=== PATIENT | female | born 1940 | race Caucasian/White ===

== ENCOUNTER 2016-09-29 20:47 | Inpatient (IN) | payer MEDICARE, MEDICAID ==
[~2016-09-29] VITALS: Ht 162.6 cm; Wt 52.9 kg
[~2016-09-29 20:47] MED LIST: ALBUAER3 IN; ALPR0.5T7 PO; ATOR10TA PO; Acetaminophen PO; DON5T PO; LACTCAP35 PO; LEV500T PO; LOSA100T27 PO; METF-370 PO; MONT10TA23 PO; NITR-48 PO; PRIM50TA29 PO; TIOTCAP INH
[2016-09-29] MEDS ORDERED: cefTRIAXone 1GM/50ML D5W 50 ML IV ONE (21:15)
[2016-09-29] MEDS ORDERED: methylPREDNISolone SOD SUCC 125 MG/2 ML VL IV ONE (21:15)
[2016-09-29] MEDS ORDERED: ALBUTEROL SULF 2.5 MG/0.5ML(0.5%) NEB SOLN NEB ONE (21:15)
[2016-09-29] MEDS ORDERED: IPRATROPIUM BROM 0.5 MG/2.5ML INH SOL NEB ONE (21:15)
[2016-09-29 21:33] LABS: Basophils # (auto) 0.1 uL; Basophils % (auto) 0.6 % (0.0-2.0); CONDITION Y; DEFINITIVE SEE PRINTOUT; Eosinophils # (auto) 1.6 uL; Eosinophils % (auto) 11.6 % (0.0-7.0); Hematocrit 47.1 % (36.0-46.0); Hemoglobin 15.6 g/dL (12.2-16.2); Lymphocytes # (auto) 4.5 uL; Lymphocytes % (auto) 32.6 % (10.0-50.0); Mean Corpuscular Hgb Conc. 33.1 g/dL (32.0-36.0); Mean Corpuscular Volume 90.6 fL (80.0-100.0); Mean Platelet Volume 9.3 fL (7.4-10.4); Monocytes # (auto) 1.7 uL; Monocytes % (auto) 12.3 % (0.0-12.0); Neutrophils # (auto) 5.9 uL; Neutrophils % (auto) 42.9 % (37.0-80.0); Platelet Count (auto) 368 10^3/uL (140-450); Red Cell Distribution Width 13.7 % (11.6-16.0); White Blood Cell 13.8 10^3/uL (4.4-10.8)
[2016-09-29 21:48] LABS: INR 0.95 (0.9-1.15); Partial Thromboplastin Time 29.6 sec (22.64-33.71); Prothrombin Time 10.4 sec (9.37-12.3)
[2016-09-29 22:00] LABS: Albumin 3.6 g/dL (3.4-5.0); Alkaline Phosphatase 104 U/L (45-117); Anion Gap 10 (5-15); Aspartate Aminotransferase 22 U/L (15-37); BUN/Creatinine Ratio 19.1; Bilirubin, Total 0.2 mg/dL (0.2-1.0); Blood Urea Nitrogen 17 mg/dL (7-18); Calcium 8.8 mg/dL (8.5-10.1); Carbon Dioxide 29 mmol/L (21-32); Chloride 97 mmol/L (98-107); GFR African American 79 mL/min; GFR Non-African American 65 mL/min; Glucose 94 mg/dL (74-106); Potassium 3.8 mmol/L (3.5-5.1); Sodium 136 mmol/L (136-145); Total Protein 7.7 g/dL (6.4-8.2)
[2016-09-29 22:02] LABS: REFLEX LACTIC ACID YES OR NO YES
[2016-09-29 22:08] LABS: B-Type Natriuretic Peptide 72.92 pg/mL (0-100)
[2016-09-29] MEDS ORDERED: SODIUM CHLORIDE 0.9% 1,000 ML IV ONE (22:45)
[2016-09-29 23:56] LABS: Urine Bilirubin Negative (Negative); Urine Blood Negative /uL (Negative); Urine Color PINK (Yellow); Urine Glucose Normal (Normal); Urine Hyaline Cast MOD /lpf (0 - 2); Urine Ketone TRACE (Negative); Urine Nitrite Negative (Negative); Urine RBC <1 /hpf (0 - 4); Urine Squamous Epithelial Cell FEW /hpf (<5); Urine Urobilinogen Normal (Negative); Urine pH 6.5 (5.0-8.0)
[2016-09-30] MEDS: SODIUM CHLORIDE 0.9% 1,000 ML IV SCH ×2 (01:42→15:12)
[2016-09-30] MEDS ORDERED: LACTULOSE 20Gm/30ML SOLN PO PRN (01:45)
[2016-09-30] MEDS ORDERED: ONDANSETRON HCL 4 MG/2 ML VIAL IV PRN (01:45)
[2016-09-30] MEDS ORDERED: DEXTROSE (50%) 50ML SYRG IV PRN (01:45)
[2016-09-30] MEDS ORDERED: HYDROcodone-ACET 5/325MG TAB PO PRN (01:45)
[2016-09-30] MEDS ORDERED: MORPHINE SULFATE 4 MG/ML SYRG IV PRN ×2 (01:45→02:00)
[2016-09-30] MEDS ORDERED: LORazepam 2MG/ML-1ML VIAL IV PRN (01:45)
[2016-09-30] MEDS ORDERED: ACETAMINOPHEN 500 MG TAB PO PRN (01:45)
[2016-09-30] MEDS ORDERED: NITROGLYCERIN 0.4 MG SL TAB SL PRN (02:00)
[2016-09-30 03:08] VITALS: BP 119/58
[2016-09-30] MEDS: ACCU-CHEK COMFORT CURVE STRIP VI SCH ×4 (06:33→22:00)
[2016-09-30] MEDS: InsuLIN REG 1unit/0.01ml Soln (100units/ml) SC SCH ×4 (06:33→22:00)
[2016-09-30] MEDS: ALBUTEROL SULF 2.5 MG/0.5ML(0.5%) NEB SOLN NEB SCH ×3 (06:42→18:50)
[2016-09-30] MEDS: IPRATROPIUM BROM 0.5 MG/2.5ML INH SOL NEB SCH ×3 (06:42→18:51)
[2016-09-30] MEDS ORDERED: ENOXAPARIN SOD 30 MG/0.3 ML SYRINGE SC SCH (10:00)
[2016-09-30] MEDS: ENOXAPARIN SOD 40 MG/0.4 ML SYRINGE SC SCH (13:10)
[2016-09-30] MEDS: methylPREDNISolone SOD SUCC 40 MG/ML VL IV SCH ×2 (13:10→22:00)
[2016-09-30] MEDS ORDERED: DOXYCYCLINE 100 MG TAB/CAP PO ONE (14:45)
[2016-09-30 18:06] VITALS: BP 110/60
[2016-09-30 18:18] VITALS: BP 110/60
[2016-09-30 21:43] VITALS: BP 125/62
[2016-09-30] MEDS: DOXYCYCLINE 100 MG TAB/CAP PO SCH (22:00)
[2016-10-01] MEDS: IPRATROPIUM BROM 0.5 MG/2.5ML INH SOL NEB SCH ×4 (00:40→19:02)
[2016-10-01] MEDS: ALBUTEROL SULF 2.5 MG/0.5ML(0.5%) NEB SOLN NEB SCH ×4 (00:40→19:02)
[2016-10-01 04:41] VITALS: BP 119/68
[2016-10-01] MEDS: InsuLIN REG 1unit/0.01ml Soln (100units/ml) SC SCH ×4 (05:56→22:00)
[2016-10-01] MEDS: ACCU-CHEK COMFORT CURVE STRIP VI SCH ×4 (05:57→22:00)
[2016-10-01 06:45] LABS: Basophils # (auto) 0.1 uL; Basophils % (auto) 0.8 % (0.0-2.0); CONDITION Y; DEFINITIVE SEE PRINTOUT; Eosinophils # (auto) 1.1 uL; Eosinophils % (auto) 10.2 % (0.0-7.0); Hematocrit 39.4 % (36.0-46.0); Lymphocytes # (auto) 3.3 uL; Lymphocytes % (auto) 30.4 % (10.0-50.0); Mean Corpuscular Hgb Conc. 32.9 g/dL (32.0-36.0); Mean Platelet Volume 9.7 fL (7.4-10.4); Monocytes # (auto) 1.5 uL; Monocytes % (auto) 13.3 % (0.0-12.0); Neutrophils % (auto) 45.3 % (37.0-80.0); Platelet Count (auto) 310 10^3/uL (140-450); Red Cell Distribution Width 13.4 % (11.6-16.0); White Blood Cell 10.9 10^3/uL (4.4-10.8)
[2016-10-01 06:59] LABS: BUN/Creatinine Ratio 16.1; Calcium 8.5 mg/dL (8.5-10.1); Potassium 3.7 mmol/L (3.5-5.1)
[2016-10-01 09:00] VITALS: BP 124/63
[2016-10-01] MEDS: methylPREDNISolone SOD SUCC 40 MG/ML VL IV SCH ×2 (10:05→22:00)
[2016-10-01] MEDS: DOXYCYCLINE 100 MG TAB/CAP PO SCH ×2 (10:05→22:00)
[2016-10-01] MEDS: ENOXAPARIN SOD 40 MG/0.4 ML SYRINGE SC SCH (10:06)
[2016-10-01 13:00] VITALS: BP 136/61
[2016-10-01 15:00] VITALS: BP 158/72
[2016-10-01 17:00] VITALS: BP 139/75
[2016-10-01 21:40] VITALS: BP 126/70
[2016-10-02] VITALS (8 sets, daily range): BP systolic 118–151; BP diastolic 55–78
[2016-10-02] MEDS: ALBUTEROL SULF 2.5 MG/0.5ML(0.5%) NEB SOLN NEB SCH ×4 (00:08→19:20)
[2016-10-02] MEDS: IPRATROPIUM BROM 0.5 MG/2.5ML INH SOL NEB SCH ×4 (00:08→19:19)
[2016-10-02] MEDS: ACCU-CHEK COMFORT CURVE STRIP VI SCH ×4 (05:01→22:00)
[2016-10-02] MEDS: InsuLIN REG 1unit/0.01ml Soln (100units/ml) SC SCH ×4 (05:01→22:31)
[2016-10-02] MEDS: ENOXAPARIN SOD 40 MG/0.4 ML SYRINGE SC SCH (10:00)
[2016-10-02] MEDS: predniSONE 20 MG TAB PO SCH (12:24)
[2016-10-02] MEDS: DOXYCYCLINE 100 MG TAB/CAP PO SCH ×2 (12:24→21:29)
[2016-10-02] MEDS ORDERED: ALPRAZolam 0.5 MG TAB PO PRN (19:45)
[2016-10-02] MEDS: PRIMIDONE 50 MG TAB PO SCH (21:29)
[2016-10-02] MEDS ORDERED: DONEPEZIL HYDROCHLORIDE 5 MG TAB PO SCH (22:00)
[2016-10-03] MEDS: ALBUTEROL SULF 2.5 MG/0.5ML(0.5%) NEB SOLN NEB SCH ×2 (00:24→06:43)
[2016-10-03] MEDS: IPRATROPIUM BROM 0.5 MG/2.5ML INH SOL NEB SCH ×2 (00:24→06:43)
[2016-10-03 05:55] VITALS: BP 121/58
[2016-10-03] MEDS: ACCU-CHEK COMFORT CURVE STRIP VI SCH ×3 (06:00→17:00)
[2016-10-03] MEDS: InsuLIN REG 1unit/0.01ml Soln (100units/ml) SC SCH ×3 (06:00→17:00)
[2016-10-03 08:00] VITALS: BP 121/58
[2016-10-03 08:20] VITALS: BP 158/81
[2016-10-03] MEDS: ENOXAPARIN SOD 40 MG/0.4 ML SYRINGE SC SCH (10:00)
[2016-10-03] MEDS ORDERED: predniSONE 20 MG TAB PO SCH (10:00)
[2016-10-03] MEDS: DOXYCYCLINE 100 MG TAB/CAP PO SCH (10:08)
[2016-10-03] MEDS: PRIMIDONE 50 MG TAB PO SCH (10:08)
[2016-10-03] MEDS: predniSONE 20 MG TAB PO SCH (10:09)
[2016-10-03 13:00] VITALS: BP 110/55
[2016-10-03] MEDS ORDERED: PRE5T PO (13:14)
[2016-10-03] MEDS ORDERED: DOXY-216 PO (13:14)
[2016-10-03 13:57] VITALS: BP 121/58
[2016-10-03 16:21] VITALS: BP 154/73
== END 2016-10-03 17:12 | DRG 91 ==
LOC: EDBD 20:47 → ER 20:49 → TELE 20:50 → TELE-WESTW 09-30 16:32
PROVIDERS: ADMIT Nurse Practitioner Family; ATTEND Internal Medicine
DX: G92 Toxic encephalopathy (principal); J96.20 Acute and chronic respiratory failure, unspecified whether with hypoxia or hypercapnia; J44.1 Chronic obstructive pulmonary disease with (acute) exacerbation; I11.0 Hypertensive heart disease with heart failure; E78.5 Hyperlipidemia, unspecified; F41.9 Anxiety disorder, unspecified; F03.90 Unspecified dementia, unspecified severity, without behavioral disturbance, psychotic disturbance, mood disturbance, and anxiety; E11.9 Type 2 diabetes mellitus without complications; F17.210 Nicotine dependence, cigarettes, uncomplicated; F32.9 Major depressive disorder, single episode, unspecified; I50.9 Heart failure, unspecified; Z79.899 Other long term (current) drug therapy; Z79.84 Long term (current) use of oral hypoglycemic drugs; Z82.49 Family history of ischemic heart disease and other diseases of the circulatory system; Z99.81 Dependence on supplemental oxygen; Z90.710 Acquired absence of both cervix and uterus
CPT/HCPCS: 36415; 70450; 71010; 80048; 80053; 81001; 82962; 83036; 83605; 83735; 83880; 84484; 85025; 85610; 85730; 87040; 87081; 93005; 94640; 96361; 96365; 96372; 97116; 97530; J0696; J1815

== ENCOUNTER 2018-04-28 13:40 | Inpatient (IN) | payer MEDICARE, MEDICAID ==
[~2018-04-28] VITALS: Ht 165.1 cm; Wt 57.9 kg
[~2018-04-28 13:40] MED LIST changes: +ASPI-231 PO; +ASPI325T25 PO; +FUR20T PO; -LEV500T PO; +LOSA-49 PO; -LOSA100T27 PO; +MULT-228 PO; -NITR-48 PO; +POTA1TAB61 PO; -PRIM50TA29 PO
[2018-04-28 14:44] LABS: Basophils # (auto) 0.1 uL; Basophils % (auto) 1.1 % (0.0-2.0); Eosinophils # (auto) 0.9 uL; Eosinophils % (auto) 8.4 % (0.0-7.0); Hematocrit 42.3 % (36.0-46.0); Hemoglobin 14.2 g/dL (12.2-16.2); Lymphocytes # (auto) 2.3 uL; Lymphocytes % (auto) 22.1 % (10.0-50.0); Mean Corpuscular Hemoglobin 31.5 pg (28.0-32.0); Mean Corpuscular Hgb Conc. 33.6 g/dL (32.0-36.0); Mean Corpuscular Volume 93.6 fL (80.0-100.0); Monocytes # (auto) 1.2 uL; Neutrophils # (auto) 5.8 uL; Neutrophils % (auto) 56.4 % (37.0-80.0); Nucleated Red Blood Cells % 0.1 %; Platelet Count (auto) 346 10^3/uL (140-450); Red Blood Cells 4.52 10^6/uL (4.0-5.20); Red Cell Distribution Width 13.4 % (11.8-14.3); White Blood Cell 10.2 10^3/uL (4.4-10.8)
[2018-04-28] MEDS ORDERED: IPRATROPIUM BROM 0.5 MG/2.5ML INH SOL HHN ONE (14:45)
[2018-04-28] MEDS ORDERED: methylPREDNISolone SOD SUCC 125 MG/2 ML VL IV ONE (14:45)
[2018-04-28] MEDS ORDERED: ALBUTEROL SULF 2.5 MG/0.5ML(0.5%) NEB SOLN HHN ONE (14:45)
[2018-04-28 15:04] LABS: Alanine Aminotransferase 20 U/L (13-56); Albumin 3.3 g/dL (3.4-5.0); Anion Gap 8 (5-15); Aspartate Aminotransferase 15 U/L (15-37); BUN/Creatinine Ratio 15.6; Blood Urea Nitrogen 15 mg/dL (7-18); Calcium 8.6 mg/dL (8.5-10.1); Carbon Dioxide 30 mmol/L (21-32); Chloride 101 mmol/L (98-107); GFR African American 72 mL/min; GFR Non-African American 60 mL/min; Glucose 170 mg/dL (74-106); Potassium 4.3 mmol/L (3.5-5.1); Sodium 139 mmol/L (136-145)
[2018-04-28 15:09] LABS: Alkaline Phosphatase 73 U/L (45-117); Bilirubin, Total 0.2 mg/dL (0.2-1.0); Total Protein 7.1 g/dL (6.4-8.2)
[2018-04-28 16:26] LABS: Lactic Acid w/Reflex 2.2 mmol/L (0.4-2.0)
[2018-04-28] MEDS ORDERED: MORPHINE SULFATE 4 MG/ML SYR/VIAL IV PRN (19:00)
[2018-04-28] MEDS ORDERED: NITROGLYCERIN 0.4 MG SL TAB SL PRN (19:00)
[2018-04-28] MEDS ORDERED: AZITHROMYCIN 500MG/ 250ML 250 ML IV ONE (19:00)
[2018-04-28] MEDS ORDERED: DEXTROSE (50%) 50ML SYRG IV PRN (19:00)
[2018-04-28] MEDS ORDERED: SODIUM CHLORIDE 0.9% 1,000 ML IV ONE (19:00)
[2018-04-28] MEDS ORDERED: cefTRIAXone 1GM/50ML D5W 50 ML IV SCH (19:00)
[2018-04-28] MEDS ORDERED: LORazepam 2MG/ML-1ML VIAL IV ONE (20:00)
[2018-04-28] MEDS ORDERED: ALBUTEROL SULF 2.5 MG/0.5ML(0.5%) NEB SOLN ONE (20:44)
[2018-04-28] MEDS ORDERED: IPRATROPIUM BROM 0.5 MG/2.5ML INH SOL ONE (20:45)
[2018-04-28] MEDS: BUDESONIDE (INHALATION) 0.5 MG/2 ML NEB NEB SCH (20:46)
[2018-04-28] MEDS: cefTRIAXone 1GM/50ML D5W 50 ML IV SCH (20:51)
[2018-04-28 21:33] VITALS: BP 105/51
[2018-04-28] MEDS: ATORVASTATIN 20 MG TAB PO SCH (22:11)
[2018-04-28] MEDS: DONEPEZIL HYDROCHLORIDE 5 MG TAB PO SCH (22:11)
[2018-04-28] MEDS: methylPREDNISolone SOD SUCC 125 MG/2 ML VL IV SCH (22:11)
[2018-04-28] MEDS: MONTELUKAST SODIUM 10 MG TAB PO SCH (22:11)
[2018-04-28] MEDS: InsuLIN REG 1unit/0.01ml Soln (100units/ml) SC SCH (22:19)
[2018-04-28] MEDS: ACCU-CHEK COMFORT CURVE STRIP VI SCH (22:24)
[2018-04-29] MEDS: methylPREDNISolone SOD SUCC 125 MG/2 ML VL IV SCH ×2 (06:03→14:34)
[2018-04-29] MEDS: IPRATROPIUM BROM 0.5 MG/2.5ML INH SOL NEB SCH ×4 (06:18→18:31)
[2018-04-29] MEDS: ALBUTEROL SULF 2.5 MG/0.5ML(0.5%) NEB SOLN NEB SCH ×4 (06:18→18:31)
[2018-04-29] MEDS: InsuLIN REG 1unit/0.01ml Soln (100units/ml) SC SCH ×4 (06:27→21:12)
[2018-04-29] MEDS: ACCU-CHEK COMFORT CURVE STRIP VI SCH ×4 (06:27→21:12)
[2018-04-29 08:01] LABS: Basophils # (auto) 0 uL; Basophils % (auto) 0.3 % (0.0-2.0); Eosinophils # (auto) 0 uL; Eosinophils % (auto) 0.1 % (0.0-7.0); Hematocrit 39.6 % (36.0-46.0); Hemoglobin 13.1 g/dL (12.2-16.2); Lymphocytes # (auto) 0.9 uL; Lymphocytes % (auto) 11.1 % (10.0-50.0); Mean Corpuscular Hemoglobin 31.3 pg (28.0-32.0); Mean Corpuscular Hgb Conc. 33.1 g/dL (32.0-36.0); Mean Corpuscular Volume 94.4 fL (80.0-100.0); Monocytes # (auto) 0.2 uL; Monocytes % (auto) 2.6 % (0.0-12.0); Neutrophils # (auto) 6.8 uL; Neutrophils % (auto) 85.9 % (37.0-80.0); Platelet Count (auto) 302 10^3/uL (140-450); Red Cell Distribution Width 13.3 % (11.8-14.3); White Blood Cell 7.9 10^3/uL (4.4-10.8)
[2018-04-29 08:19] LABS: BUN/Creatinine Ratio 20.6; Calcium 8.3 mg/dL (8.5-10.1); Magnesium 2.2 mg/dL (1.6-2.6)
[2018-04-29] MEDS: cefTRIAXone 1GM/50ML D5W 50 ML IV SCH (08:31)
[2018-04-29] MEDS: Ensure Enlive Strawberry 8oz Bottle PO SCH ×3 (09:06→18:24)
[2018-04-29] MEDS: BUDESONIDE (INHALATION) 0.5 MG/2 ML NEB NEB SCH ×2 (10:25→22:37)
[2018-04-29] MEDS: ASPirin 81 mg TAB PO SCH (11:39)
[2018-04-29] MEDS: LOSARTAN POTASSIUM 50 MG TAB PO SCH (11:39)
[2018-04-29] MEDS: AZITHROMYCIN 500MG/ 250ML 250 ML IV SCH (11:39)
[2018-04-29] MEDS ORDERED: LORazepam 2MG/ML-1ML VIAL ONE (15:19)
[2018-04-29] MEDS: LORazepam 2MG/ML-1ML VIAL IV PRN ×2 (15:25→22:28)
[2018-04-29 16:30] VITALS: BP 107/60
--- NOTE | 2018-04-29 16:40 | NUR ---
Telemetry admit from ER INGRID MATTHEWS admitted to Telemetry unit after SBAR received. Patient oriented to GREG OTERO, RN primary RN, unit, room, bed, and unit policies regarding patient care and visiting hours. Patient now on continuous telemetry monitoring, tele box #5 and telemetry reading on arrival to unit is SR 82. Patient placed on bedside oxygen, weighed by bedscale and encouraged to call if they need something. All questions and concerns addressed, patient verbalized understanding.
--- NOTE | 2018-04-29 19:15 | NUR ---
Opening Shift Note Assumed care of patient, awake but alert only to self. Bed is in lowest position and locked. Tele box number matches monitor and leads are in correct placement. Sitter at bedside. Board updated. No S/S of distress/SOB or pain. Will continue to monitor for changes Q1hr and PRN.
[2018-04-29 21:00] VITALS: BP 120/63
[2018-04-29] MEDS: ATORVASTATIN 20 MG TAB PO SCH (21:11)
[2018-04-29] MEDS: DONEPEZIL HYDROCHLORIDE 5 MG TAB PO SCH (21:12)
[2018-04-29] MEDS: MONTELUKAST SODIUM 10 MG TAB PO SCH (21:12)
--- NOTE | 2018-04-29 21:15 | NUR ---
Spoke to Patient's daughter, Keisha, on the phone after confirming password with daughter. I gave her a brief update on patient's health status and condition.
[2018-04-30] MEDS: methylPREDNISolone SOD SUCC 40 MG/ML VL IV SCH ×5 (00:03→23:44)
[2018-04-30 01:45] LABS: Lactic Acid w/Reflex 2.4 mmol/L (0.4-2.0)
[2018-04-30 05:03] VITALS: BP 119/62
[2018-04-30] MEDS: InsuLIN REG 1unit/0.01ml Soln (100units/ml) SC SCH ×4 (06:31→22:03)
[2018-04-30] MEDS: ACCU-CHEK COMFORT CURVE STRIP VI SCH ×4 (06:31→22:03)
--- NOTE | 2018-04-30 07:00 | NUR ---
Morning note Report received and bedside handoff completed. Patient observed awake, alert to self only, and noted tremors in head. Patient has history of tremors. Noted fidgety with hands, mittens in place to prevent pulling at IV, etc. Sitter at bedside, Rufina, notified to call if needing assistance with anything.
[2018-04-30] MEDS: ALBUTEROL SULF 2.5 MG/0.5ML(0.5%) NEB SOLN NEB SCH ×5 (07:03→19:00)
[2018-04-30] MEDS: IPRATROPIUM BROM 0.5 MG/2.5ML INH SOL NEB SCH ×5 (07:03→19:00)
[2018-04-30] MEDS: Ensure Enlive Strawberry 8oz Bottle PO SCH ×3 (08:00→18:20)
[2018-04-30 08:36] VITALS: BP 118/66
[2018-04-30] MEDS: AZITHROMYCIN 500MG/ 250ML 250 ML IV SCH (09:45)
[2018-04-30] MEDS: ASPirin 81 mg TAB PO SCH (09:45)
[2018-04-30] MEDS: LOSARTAN POTASSIUM 50 MG TAB PO SCH (09:45)
[2018-04-30] MEDS: BUDESONIDE (INHALATION) 0.5 MG/2 ML NEB NEB SCH ×2 (10:08→18:36)
[2018-04-30] MEDS: LORazepam 2MG/ML-1ML VIAL IV PRN ×2 (11:49→22:15)
--- NOTE | 2018-04-30 12:00 | NUR ---
WOUND CARE NOTE: IN TO SEE PATIENT AT THIS TIME PER WOUND CARE CONSULT REQUEST. PATIENT ADMITTED TO [facility] WITH DIAGNOSIS OF ACUTE/CHRONIC RESPIRATORY FAILURE. PATIENT HAS CURRENT PARISH SCORE OF 14. DAUGHTER IS AT BEDSIDE. PATIENT RESIDES AT [facility]. SHE IS AWAKE, ALERT, PLEASANTLY CONFUSED. PATIENT IS ABLE TO ASSIST WITH HER TURNING/REPOSITIONING. SHE IS NOTED TO HAVE A SLOW TO AL LEFT HEEL. SKIN IS RED, SLOW BLANCHING. ADVISED BEDSIDE AID TO APPLY PRAMOD FOAM BOOTS TO BLE PREVENTATIVE. SHE HAS SLOW BLANCHING REDNESS OVER SCARS TO SACRUM. MOISTURE BARRIER CREAM AND OPTIFOAM GENTLE DRESSING APPLIED PREVENTATIVE. SKIN TEAR NOTED TO RIGHT FOREARM. APPLIED THERAHONEY, BANDAID TO WOUND. BLANCHABLE RED SKIN AND FUNGAL NAIL NOTED TO LEFT # 1 TOE. LEFT OPEN TO AIR. NO OTHER SKIN INTEGRITY ISSUES SEEN AT THIS TIME. RECOMMEND: FREQUENT TURN SCHEDULE Q 2 HOURS, PRN CONDITION PERMITS, WITH PRESSURE REDISTRIBUTION USING PILLOWS/WEDGES, PRAMOD FOAM BOOTS TO BILATERAL FEET/HEELS, Q 3 DAY, PRN DRESSING CHANGE TO RIGHT FOREARM SKIN TEAR, BID/PRN APPLICATION WITH MOISTURE BARRIER CREAM, OPTIFOAM GENTLE SACRAL DRESSING PREVENTATIVE, DIETARY CONSULT, CONTINUED MONITORING BY WOUND CARE TEAM. Addendum: 04/30/18 at 1648 by Day Bear RN Amended: Links added.
[2018-04-30 13:00] VITALS: BP 103/53
[2018-04-30 17:00] VITALS: BP 109/51
--- NOTE | 2018-04-30 19:30 | NUR ---
RECEIVED PATIENT LYING IN BED, AWAKE, ALERT, ORIENTED TO SELF, WITH SITTER BEDSIDE. NO S/S OF RESPIRATORY DISTRESS. NO IV, PATIENT PULLED OUT IV TODAY. ORIENTED ON PLAN OF CARE. BED IS LOCKED AND IN LOWEST LEVEL, SIDE RAILS UP 2X, CALL LIGHT WITHIN REACH. WILL CONTINUE TO MONITOR.
[2018-04-30 22:01] VITALS: BP 116/48
[2018-04-30] MEDS: DONEPEZIL HYDROCHLORIDE 5 MG TAB PO SCH (22:03)
[2018-04-30] MEDS: MONTELUKAST SODIUM 10 MG TAB PO SCH (22:03)
[2018-04-30] MEDS: ATORVASTATIN 20 MG TAB PO SCH (22:03)
[2018-05-01] VITALS (7 sets, daily range): BP systolic 127–151; BP diastolic 69–92
[2018-05-01] MEDS: methylPREDNISolone SOD SUCC 40 MG/ML VL IV SCH ×4 (06:16→23:34)
[2018-05-01] MEDS: InsuLIN REG 1unit/0.01ml Soln (100units/ml) SC SCH ×4 (06:30→21:55)
[2018-05-01] MEDS: ACCU-CHEK COMFORT CURVE STRIP VI SCH ×4 (06:30→21:55)
[2018-05-01] MEDS: ALBUTEROL SULF 2.5 MG/0.5ML(0.5%) NEB SOLN NEB SCH ×3 (07:24→19:13)
[2018-05-01] MEDS: IPRATROPIUM BROM 0.5 MG/2.5ML INH SOL NEB SCH ×3 (07:24→19:13)
[2018-05-01] MEDS: Ensure Enlive Strawberry 8oz Bottle PO SCH ×3 (07:27→17:15)
--- NOTE | 2018-05-01 07:30 | NUR ---
Respiratory note: MED NEB TX STOPPED EARLY. PATIENT FELL TO SLEEP MIDDLE OF TX AND WHEN SHE WOKE UP WAS SCARED AND YELLED STOP OUT LOUD. PATIENT MASK MED NEB TX WAS TAKEN OFF AND PATIENT WENT BACK TO SLEEP. SENIOR CORE JAVA DEVELOPER AT BEDSIDE JOSY WITNESS. WILL CONTINUE TO MONITOR PATIENT.
--- NOTE | 2018-05-01 07:37 | NUR ---
CARE ENDORSED TO AM SHIFT RN
--- NOTE | 2018-05-01 07:45 | NUR ---
Opening Shift Note REceived report from Avel VICKERS. Assumed care of patient, asleep. No S/S of distress/SOB or pain. Noted sitter at bedside. Instructed on POC and to call for assist PRN, will continue to monitor for changes Q1hr and PRN.
--- NOTE | 2018-05-01 09:10 | NUR ---
RECEIVED A CALL FROM LAB THAT PATIENT IS POSITIVE FOR MRSA IN NARES. INFORMED CN VESNA.
[2018-05-01] MEDS: AZITHROMYCIN 500MG/ 250ML 250 ML IV SCH (09:41)
[2018-05-01] MEDS: LOSARTAN POTASSIUM 50 MG TAB PO SCH (09:42)
[2018-05-01] MEDS: ASPirin 81 mg TAB PO SCH (09:42)
--- NOTE | 2018-05-01 10:00 | NUR ---
RECEIVED A CALL FROM [facility]. REQUESTED TO CALL THEM IF PATIENT IS FOR DISCHARGE TODAY FOR THEM TO ARRANGE TRANSPORT. PHONE #: [phone] FAX #: [phone] ASKING TO FAX COPY OF DISCHARGE ORDER AND SUMMARY IF PATIENT IS GOING BACK TO [facility].
[2018-05-01] MEDS: BUDESONIDE (INHALATION) 0.5 MG/2 ML NEB NEB SCH ×2 (11:15→19:21)
--- NOTE | 2018-05-01 11:40 | NUR ---
PATIENT IS UP TO CHAIR, TOLERATING WELL. ASSISTED BY Jennifer ROBERTSON.
--- NOTE | 2018-05-01 16:00 | NUR ---
Dr. Dinh at bedside. Informed patient is positive for MRSA-MD robert said no need for cream/ medicine to treat MRSA. Will not discharge the patient due to wheezes, patient made aware and verbalized understanding.
--- NOTE | 2018-05-01 17:15 | NUR ---
DIPTI FERRIS INFORMED NURSE THAT PATIENT WAS SCRATCHING HER LEFT FOREARM RESULTING TO SKIN TEAR. TOOK PICTURE OF THE NEW WOUND REFERENCE AND FILLED OUT WOUND CARE FORM. COVERED PATIENT'S BILATERAL HANDS WITH MITTENS.
[2018-05-01] MEDS: MONTELUKAST SODIUM 10 MG TAB PO SCH (21:45)
[2018-05-01] MEDS: DONEPEZIL HYDROCHLORIDE 5 MG TAB PO SCH (21:45)
[2018-05-01] MEDS: ATORVASTATIN 20 MG TAB PO SCH (21:45)
[2018-05-01] MEDS: LORazepam 2MG/ML-1ML VIAL IV PRN (21:49)
[2018-05-02 05:00] VITALS: BP 121/59
[2018-05-02] MEDS: methylPREDNISolone SOD SUCC 40 MG/ML VL IV SCH ×2 (06:21→12:03)
[2018-05-02] MEDS: ACCU-CHEK COMFORT CURVE STRIP VI SCH ×4 (06:32→23:07)
[2018-05-02] MEDS: InsuLIN REG 1unit/0.01ml Soln (100units/ml) SC SCH ×4 (06:32→23:07)
[2018-05-02] MEDS: BUDESONIDE (INHALATION) 0.5 MG/2 ML NEB NEB SCH ×2 (07:23→19:21)
[2018-05-02] MEDS: IPRATROPIUM BROM 0.5 MG/2.5ML INH SOL NEB SCH ×4 (07:23→19:20)
[2018-05-02] MEDS: ALBUTEROL SULF 2.5 MG/0.5ML(0.5%) NEB SOLN NEB SCH ×4 (07:23→19:20)
--- NOTE | 2018-05-02 07:29 | NUR ---
CARE ENDORSED TO AM SHIFT RN
[2018-05-02 08:31] VITALS: BP 112/56
[2018-05-02] MEDS: Ensure Enlive Strawberry 8oz Bottle PO SCH ×2 (09:21→12:03)
[2018-05-02] MEDS: LOSARTAN POTASSIUM 50 MG TAB PO SCH (10:00)
[2018-05-02] MEDS: AZITHROMYCIN 500MG/ 250ML 250 ML IV SCH (12:02)
[2018-05-02] MEDS: ASPirin 81 mg TAB PO SCH (12:03)
[2018-05-02 13:00] VITALS: BP 101/48
--- NOTE | 2018-05-02 13:55 | NUR ---
NUTRITION CONSULT/ASSESSMENT NOTES Please refer to link notes of nutrition screen form filed under the intervention section of the plan of care for further details. Est. Needs: 1650 kcal to 1950 kcal (25-30 kcal/kgBW), 65 gms to 78 gms pro (1.0-1.2 gms/kgBW). Will continue to monitor pertinent labs and reassess nutrient needs prn Thank you for this consult. Addendum: 05/02/18 at [address] Amended: Links added.
[2018-05-02 16:53] VITALS: BP 114/58
[2018-05-02] MEDS ORDERED: predniSONE 20 MG TAB PO ONE (18:00)
[2018-05-02] MEDS: Glucerna Carbsteady SHAKE Stawberry 8oz PO SCH (18:11)
[2018-05-02 21:43] VITALS: BP 116/65
[2018-05-02] MEDS: MONTELUKAST SODIUM 10 MG TAB PO SCH (23:06)
[2018-05-02] MEDS: ASCORBIC ACID 500 MG TAB PO SCH (23:06)
[2018-05-02] MEDS: ATORVASTATIN 20 MG TAB PO SCH (23:06)
[2018-05-02] MEDS: DONEPEZIL HYDROCHLORIDE 5 MG TAB PO SCH (23:07)
[2018-05-03 05:00] VITALS: BP 112/51
[2018-05-03 06:49] LABS: Basophils # (auto) 0 uL; Basophils % (auto) 0.3 % (0.0-2.0); Eosinophils # (auto) 0.5 uL; Hematocrit 41.8 % (36.0-46.0); Hemoglobin 14.3 g/dL (12.2-16.2); Lymphocytes # (auto) 5.2 uL; Lymphocytes % (auto) 34.4 % (10.0-50.0); Mean Corpuscular Hemoglobin 31.7 pg (28.0-32.0); Mean Corpuscular Hgb Conc. 34.2 g/dL (32.0-36.0); Mean Corpuscular Volume 92.7 fL (80.0-100.0); Monocytes # (auto) 1.7 uL; Monocytes % (auto) 11.2 % (0.0-12.0); Neutrophils # (auto) 7.7 uL; Neutrophils % (auto) 51.1 % (37.0-80.0); Nucleated Red Blood Cells % 0.1 %; Platelet Count (auto) 306 10^3/uL (140-450); Red Blood Cells 4.52 10^6/uL (4.0-5.20); Red Cell Distribution Width 13.6 % (11.8-14.3); White Blood Cell 15.1 10^3/uL (4.4-10.8)
[2018-05-03] MEDS: ALBUTEROL SULF 2.5 MG/0.5ML(0.5%) NEB SOLN NEB SCH ×4 (06:55→18:41)
[2018-05-03] MEDS: IPRATROPIUM BROM 0.5 MG/2.5ML INH SOL NEB SCH ×4 (06:55→18:41)
[2018-05-03] MEDS: InsuLIN REG 1unit/0.01ml Soln (100units/ml) SC SCH ×4 (07:00→21:29)
[2018-05-03 07:03] LABS: BUN/Creatinine Ratio 28.6; Calcium 8.3 mg/dL (8.5-10.1); Potassium 3.6 mmol/L (3.5-5.1)
[2018-05-03] MEDS: ACCU-CHEK COMFORT CURVE STRIP VI SCH ×4 (07:10→21:30)
[2018-05-03] MEDS: Glucerna Carbsteady SHAKE Stawberry 8oz PO SCH ×3 (08:42→17:57)
[2018-05-03 09:07] VITALS: BP 103/50
[2018-05-03] MEDS: LOSARTAN POTASSIUM 50 MG TAB PO SCH (09:47)
[2018-05-03] MEDS: ASPirin 81 mg TAB PO SCH (09:47)
[2018-05-03] MEDS: ASCORBIC ACID 500 MG TAB PO SCH ×2 (09:47→21:29)
[2018-05-03] MEDS: AZITHROMYCIN 250 MG TAB PO SCH (09:47)
[2018-05-03] MEDS: MULTIPLE VITAMINS W/ MINERALS TAB PO SCH (09:48)
[2018-05-03] MEDS: BUDESONIDE (INHALATION) 0.5 MG/2 ML NEB NEB SCH ×2 (11:25→18:41)
[2018-05-03 13:26] VITALS: BP 119/48
[2018-05-03 17:23] VITALS: BP 142/65
--- NOTE | 2018-05-03 19:25 | NUR ---
OPENING SHIFT NOTE Received report from day shift RN. Patient is awake and alert to self. No distress is noted. SCD's and Durham boots are applied bilaterally. Patient urinated in bed. New linen was provided and patient was cleansed with warm wash cloth.Turned patient to left side at this time. Patient tolerated procedure well. Will continue to monitor and round hourly/PRN.
[2018-05-03] MEDS: DONEPEZIL HYDROCHLORIDE 5 MG TAB PO SCH (21:29)
[2018-05-03] MEDS: ATORVASTATIN 20 MG TAB PO SCH (21:29)
[2018-05-03] MEDS: MONTELUKAST SODIUM 10 MG TAB PO SCH (21:29)
[2018-05-03 22:00] VITALS: BP 110/57
[2018-05-04 05:00] VITALS: BP 126/63
[2018-05-04] MEDS: ALBUTEROL SULF 2.5 MG/0.5ML(0.5%) NEB SOLN NEB SCH ×4 (06:17→20:43)
[2018-05-04] MEDS: IPRATROPIUM BROM 0.5 MG/2.5ML INH SOL NEB SCH ×4 (06:17→20:43)
--- NOTE | 2018-05-04 06:35 | NUR ---
ROUNDS Patient urinated in bed. Patient was cleansed with warm washcloth. Partial linen change was done at this time. New optifoam was replaced on sacrum. Left area of sacrum has some erythema and slow blanching. Patient tolerated procedure well. Patient was turned to right side at this time. Pillows placed under kneed for comfort. Thornton boots and SCDs are applied. Will continue to monitor patient.
[2018-05-04 07:00] LABS: Basophils # (auto) 0.1 uL; Basophils % (auto) 0.4 % (0.0-2.0); Eosinophils # (auto) 1.2 uL; Eosinophils % (auto) 7.3 % (0.0-7.0); Hematocrit 47.7 % (36.0-46.0); Hemoglobin 15.3 g/dL (12.2-16.2); Lymphocytes # (auto) 4.8 uL; Lymphocytes % (auto) 29.9 % (10.0-50.0); Mean Corpuscular Hemoglobin 30.8 pg (28.0-32.0); Mean Corpuscular Hgb Conc. 32.2 g/dL (32.0-36.0); Mean Corpuscular Volume 95.7 fL (80.0-100.0); Monocytes # (auto) 1.9 uL; Monocytes % (auto) 11.8 % (0.0-12.0); Neutrophils # (auto) 8.1 uL; Neutrophils % (auto) 50.6 % (37.0-80.0); Nucleated Red Blood Cells % 0.1 %; Platelet Count (auto) 313 10^3/uL (140-450); Red Blood Cells 4.98 10^6/uL (4.0-5.20); Red Cell Distribution Width 13.8 % (11.8-14.3); White Blood Cell 16.1 10^3/uL (4.4-10.8)
[2018-05-04] MEDS: InsuLIN REG 1unit/0.01ml Soln (100units/ml) SC SCH ×4 (07:00→22:31)
[2018-05-04] MEDS: ACCU-CHEK COMFORT CURVE STRIP VI SCH ×4 (07:10→22:27)
[2018-05-04 07:13] LABS: Calcium 8.3 mg/dL (8.5-10.1); Potassium 3.9 mmol/L (3.5-5.1)
[2018-05-04] MEDS: Glucerna Carbsteady SHAKE Stawberry 8oz PO SCH ×3 (08:01→17:44)
[2018-05-04 09:00] VITALS: BP 106/48
[2018-05-04] MEDS: LOSARTAN POTASSIUM 50 MG TAB PO SCH (10:00)
[2018-05-04] MEDS: ASPirin 81 mg TAB PO SCH (10:00)
[2018-05-04] MEDS: ASCORBIC ACID 500 MG TAB PO SCH ×2 (10:00→22:22)
[2018-05-04] MEDS: AZITHROMYCIN 250 MG TAB PO SCH (10:00)
[2018-05-04] MEDS: MULTIPLE VITAMINS W/ MINERALS TAB PO SCH (10:00)
[2018-05-04] MEDS: BUDESONIDE (INHALATION) 0.5 MG/2 ML NEB NEB SCH ×2 (10:58→20:43)
[2018-05-04 12:58] VITALS: BP 114/64
--- NOTE | 2018-05-04 14:16 | NUR ---
SPOKE TO DAUGHTER ANTON ABOUT DISCHARGE PLANNING SHE IS REQUESTING THAT HER MOM BE DISCHARGED BACK TO THE ASSISTED LIVING SIDE OF [facility] AND SHE WOULD LIKE PHYSICAL THERAPY ON DISCHARGE. PAGED DR WYATT TO NOTIFY HIM
[2018-05-04] MEDS: LORazepam 0.5 MG TAB PO PRN (14:51)
[2018-05-04] MEDS: predniSONE 20 MG TAB PO SCH (17:44)
--- NOTE | 2018-05-04 20:43 | NUR ---
Respiratory note: PT WAS SEEN FOR HER SCHEDULED MED NEB TX AT 2042. TX WAS STOPPED IMMEDIATELY DUE TO PT NOT ALLOWING ME TO PUT THE NEBULIZER MASK ON. I ATTEMPTED TO JUST HOLD IT IN FRONT OF HER FACE BUT SHE WOULD STILL NOT LET ME. PT IS CONFUSED. THE PT DID NOT DISPLAY ANY SIGNS OF RESPIRATORY DISTRESS. HR 81 RR 18 POX 93% ON 3L NASAL CANNULA. SITTER AT BEDSIDE AWARE. WILL CONT TO TREAT ORDERED.
[2018-05-04 22:00] VITALS: BP 100/53
[2018-05-04] MEDS: MONTELUKAST SODIUM 10 MG TAB PO SCH (22:21)
[2018-05-04] MEDS: DONEPEZIL HYDROCHLORIDE 5 MG TAB PO SCH (22:21)
[2018-05-04] MEDS: ATORVASTATIN 20 MG TAB PO SCH (22:22)
[2018-05-04 22:32] VITALS: BP 100/53
[2018-05-05 01:47] VITALS: BP 100/53
[2018-05-05 05:40] VITALS: BP 114/66
[2018-05-05] MEDS: predniSONE 20 MG TAB PO SCH ×5 (06:00→17:39)
[2018-05-05] MEDS: InsuLIN REG 1unit/0.01ml Soln (100units/ml) SC SCH ×4 (06:05→22:18)
[2018-05-05] MEDS: ACCU-CHEK COMFORT CURVE STRIP VI SCH ×4 (06:06→22:18)
[2018-05-05] MEDS: ALBUTEROL SULF 2.5 MG/0.5ML(0.5%) NEB SOLN NEB SCH ×4 (06:13→18:50)
[2018-05-05] MEDS: IPRATROPIUM BROM 0.5 MG/2.5ML INH SOL NEB SCH ×4 (06:13→18:50)
--- NOTE | 2018-05-05 06:13 | NUR ---
REFUSED PREDNISONE AT 0000, 0600 SPIT PILL OUT ALTHOUGH CRUSHED AND PUT IN APPLE SAUCE AND JELLO.
--- NOTE | 2018-05-05 07:04 | NUR ---
SHIFT END PATIENT RESTING IN BED. NO S/S OF DISTRESS NOR COMPLAINTS OF PAIN. HORTICULTURAL WORKER AT BEDSIDE. ENDORSING CARE TO DAY RN.
[2018-05-05 07:24] LABS: Basophils # (auto) 0 uL; Basophils % (auto) 0.2 % (0.0-2.0); Eosinophils # (auto) 0.6 uL; Eosinophils % (auto) 3.6 % (0.0-7.0); Hematocrit 46.9 % (36.0-46.0); Hemoglobin 15.3 g/dL (12.2-16.2); Lymphocytes % (auto) 24.1 % (10.0-50.0); Mean Corpuscular Hemoglobin 30.6 pg (28.0-32.0); Mean Corpuscular Hgb Conc. 32.7 g/dL (32.0-36.0); Mean Corpuscular Volume 93.7 fL (80.0-100.0); Monocytes # (auto) 1.8 uL; Neutrophils # (auto) 10.1 uL; Neutrophils % (auto) 61.1 % (37.0-80.0); Nucleated Red Blood Cells % 0.1 %; Platelet Count (auto) 342 10^3/uL (140-450); Red Blood Cells 5.01 10^6/uL (4.0-5.20); Red Cell Distribution Width 13.3 % (11.8-14.3); White Blood Cell 16.5 10^3/uL (4.4-10.8)
--- NOTE | 2018-05-05 07:34 | NUR ---
patient is awake, alert and oriented x2-3, appears forgetful,no distress noted, respirations are unlabored, was repositioned, sitter at beside, when asked if she was ready for breakfast, she said, " no , i dont need anything, but a good idea for later". it took alot of education for her to agree to an accu check, she had refused at first. physical assessment performed, foam dressing to coccyx is c-d-i.
[2018-05-05 07:41] LABS: Calcium 8.7 mg/dL (8.5-10.1); Potassium 3.7 mmol/L (3.5-5.1)
[2018-05-05] MEDS: Glucerna Carbsteady SHAKE Stawberry 8oz PO SCH ×3 (08:00→17:39)
[2018-05-05 08:53] VITALS: BP 114/59
[2018-05-05] MEDS: MULTIPLE VITAMINS W/ MINERALS TAB PO SCH (09:42)
[2018-05-05] MEDS: ASCORBIC ACID 500 MG TAB PO SCH ×2 (09:42→22:06)
[2018-05-05] MEDS: ASPirin 81 mg TAB PO SCH (09:42)
[2018-05-05] MEDS: LOSARTAN POTASSIUM 50 MG TAB PO SCH (09:43)
[2018-05-05] MEDS: AZITHROMYCIN 250 MG TAB PO SCH (09:43)
[2018-05-05] MEDS: BUDESONIDE (INHALATION) 0.5 MG/2 ML NEB NEB SCH ×2 (10:18→18:50)
--- NOTE | 2018-05-05 11:32 | NUR ---
Nutrition Follow-up Notes Wt: 62.6 kg Pt was sleeping with no family by beside. per pt records pt with COPD exacerbation. pt is currently on CCHO 60 gm diet with Glucerna 1 carton TID with inadequate PO of < 50% x 6 per RN doc Est. Needs: 1650 kcal to 1950 kcal (25-30 kcal/kgBW), 65 gms to 78 gms pro (1.0-1.2 gms/kgBW). Will continue to monitor pertinent labs and reassess nutrient needs prn Labs: BUN 20 H, rest lab wnl Skin: Judson scale 14, mod risk skin tear to forearm per RN odc. noted pt on MVI/C GI: Pt had 1 BM today per municipal bond trader. PES: Increased nutrient needs r/t chronic current medical condition aeb hx of wt loss,mild hypoalbuminemia, on ONS with less than 75% consumed meals Altered nutrition related lab values r/t acute/chronic medical condition aeb hyperglycemia, hypocalcemia, elev. HDL and mild hypoalbuminemia. Will continue to monitor PO intake, skin status, pertinent labs and weight trend. F/u in 3-5 days. Rec.: 1.) Continue close supervision and feeding assistance prn during meals. 2.) Refer to CDE/RD for further nutrition educ. and weight monitoring upon discharge. 3.) Continue current plan of care.
[2018-05-05 13:00] VITALS: BP 98/51
[2018-05-05] MEDS: LORazepam 0.5 MG TAB PO PRN (14:22)
--- NOTE | 2018-05-05 15:55 | NUR ---
PT Patient on bedpan during PT visit. Addendum: 05/05/18 at 1555 by RANJIT GIVENS PTT Amended: Links added.
[2018-05-05 17:00] VITALS: BP 101/48
--- NOTE | 2018-05-05 19:45 | NUR ---
SHIFT OPEN PATIENT IN BED SLEEPING. NO S/S OF DISTRESS OR SOB. OXYGEN VIA NASAL CANULA AND SCD'S IN PLACE AND SITTER AT BEDSIDE. WILL CONTINUE TO MONITOR Q1H OR PRN
[2018-05-05 21:55] VITALS: BP 108/61
[2018-05-05] MEDS: ATORVASTATIN 20 MG TAB PO SCH (22:06)
[2018-05-05] MEDS: DONEPEZIL HYDROCHLORIDE 5 MG TAB PO SCH (22:06)
[2018-05-05] MEDS: MONTELUKAST SODIUM 10 MG TAB PO SCH (22:06)
--- NOTE | 2018-05-05 22:20 | NUR ---
PATIENT SPITTING OUT MEDS MADE MORE PALATABLE WITH SUGAR SUBSTITUTE. PATIENT CONSUMED MOST.
[2018-05-06] MEDS: predniSONE 20 MG TAB PO SCH ×3 (00:30→12:00)
[2018-05-06 05:20] VITALS: BP 130/67
[2018-05-06] MEDS: ACCU-CHEK COMFORT CURVE STRIP VI SCH ×3 (06:26→17:00)
[2018-05-06] MEDS: InsuLIN REG 1unit/0.01ml Soln (100units/ml) SC SCH ×3 (06:26→17:00)
[2018-05-06] MEDS: IPRATROPIUM BROM 0.5 MG/2.5ML INH SOL NEB SCH ×3 (06:57→14:32)
[2018-05-06] MEDS: BUDESONIDE (INHALATION) 0.5 MG/2 ML NEB NEB SCH (06:57)
[2018-05-06] MEDS: ALBUTEROL SULF 2.5 MG/0.5ML(0.5%) NEB SOLN NEB SCH ×3 (06:57→14:32)
--- NOTE | 2018-05-06 07:00 | NUR ---
SHIFT END PATIENT IN BED RESTING. NO S/S OF DISTRESS OR COMPLAINTS OF PAIN. SITTER AT BEDSIDE. HAND OFF TO DAY RN.
--- NOTE | 2018-05-06 07:12 | NUR ---
Opening Shift Note Assumed care of patient, asleep. No S/S of distress/SOB or pain. Instructed on POC and to call for assist PRN, will continue to monitor for changes Q1hr and PRN. Sitter at bedside.
[2018-05-06] MEDS: Glucerna Carbsteady SHAKE Stawberry 8oz PO SCH ×2 (08:00→12:00)
[2018-05-06 09:00] VITALS: BP 109/63
[2018-05-06] MEDS: LOSARTAN POTASSIUM 50 MG TAB PO SCH (09:32)
[2018-05-06] MEDS: AZITHROMYCIN 250 MG TAB PO SCH (09:33)
[2018-05-06] MEDS: ASCORBIC ACID 500 MG TAB PO SCH (10:00)
[2018-05-06] MEDS: MULTIPLE VITAMINS W/ MINERALS TAB PO SCH (10:00)
[2018-05-06] MEDS: ASPirin 81 mg TAB PO SCH (10:00)
--- NOTE | 2018-05-06 10:06 | NUR ---
Respiratory note: PT WAS SCANNED FOR THE MED [place] TX AND ENDED UP REFUSING AND WOULD NOT LET ME CHECK HER VITALS. NO SOB NOTED.
--- NOTE | 2018-05-06 12:39 | NUR ---
PT Patient refused to be OOB during PT visit. ALEE Brown was notified of pt's refusal. Addendum: 05/06/18 at 1240 by RANJIT GIVENS PTT Amended: Links added.
[2018-05-06 13:00] VITALS: BP 101/67
[2018-05-06 13:28] VITALS: BP 109/63
--- NOTE | 2018-05-06 14:08 | NUR ---
patient services manager paged.
--- NOTE | 2018-05-06 14:30 | NUR ---
PATIENT REFUSES WOUND PICTURES Patient is becoming increasingly aggressive and refusing to be touched and refuses to have wound photos taken.
--- NOTE | 2018-05-06 16:00 | NUR ---
Spoke with Keisha Pereira daughter. Daughter aware patient is being transferred back to [facility]. Discharge instructions given over the phone as requested by family. All questions/concerns addressed.
[2018-05-06 16:52] VITALS: BP 94/55
--- NOTE | 2018-05-06 17:20 | NUR ---
Discharge instructions given as ordered. Encourage to follow up with PMD as instructed. All questions and concerns addressed. Family verbalized understanding. Medication reconciliation form completed and copy given to patient. No POM medications in pharmacy. Patient taken to vehicle via stretcher with all personal belongings, accompanied by staff and family member. No distress noted at time of departure. Keisha (daughter) called and informed of patient leaving hospital. Patient refused wound photos.
== END 2018-05-06 17:20 | DRG 871 ==
LOC: EDBD 13:40 → ER 13:40 → TELE 19:04 → TELE-WESTW 04-29 16:23 → WEST WING 04-30 12:05
PROVIDERS: ADMIT Nurse Practitioner Acute Care; ATTEND Internal Medicine Pulmonary Disease
DX: A41.9 Sepsis, unspecified organism (principal); J96.21 Acute and chronic respiratory failure with hypoxia; J44.1 Chronic obstructive pulmonary disease with (acute) exacerbation; E44.1 Mild protein-calorie malnutrition; E11.65 Type 2 diabetes mellitus with hyperglycemia; I50.9 Heart failure, unspecified; I11.0 Hypertensive heart disease with heart failure; F03.90 Unspecified dementia, unspecified severity, without behavioral disturbance, psychotic disturbance, mood disturbance, and anxiety; E78.5 Hyperlipidemia, unspecified; F17.210 Nicotine dependence, cigarettes, uncomplicated; I70.0 Atherosclerosis of aorta; J98.4 Other disorders of lung; K21.9 Gastro-esophageal reflux disease without esophagitis; Z79.82 Long term (current) use of aspirin; Z79.899 Other long term (current) drug therapy; Z86.73 Personal history of transient ischemic attack (TIA), and cerebral infarction without residual deficits; Z90.710 Acquired absence of both cervix and uterus; Z91.19 Patient's noncompliance with other medical treatment and regimen; Z96.641 Presence of right artificial hip joint; Z82.49 Family history of ischemic heart disease and other diseases of the circulatory system; F41.9 Anxiety disorder, unspecified
CPT/HCPCS: 36415; 36600; 71045; 80048; 80053; 80061; 82805; 82962; 83036; 83605; 83735; 83880; 84443; 84484; 85025; 87040; 87081; 93005; 94640; 94644; 96374; 96375; 97110; 97116; 97163; 97530; 99291; G0378; J0696; J1815

== ENCOUNTER 2018-07-15 08:26 | Inpatient (IN) | payer MEDICARE, MEDICAID ==
[~2018-07-15] VITALS: Ht 165.1 cm; Wt 55.9 kg
[2018-07-15] MEDS ORDERED: D5W/SOD CHLO 0.9% 1,000 ML IV ONE (08:45)
[2018-07-15] MEDS ORDERED: IPRATROPIUM BROM 0.5 MG/2.5ML INH SOL NEB ONE (09:00)
[2018-07-15] MEDS ORDERED: ALBUTEROL SULF 2.5 MG/0.5ML(0.5%) NEB SOLN NEB ONE (09:00)
[2018-07-15] MEDS ORDERED: LORazepam 2MG/ML-1ML VIAL IV ONE (09:00)
[2018-07-15 09:34] LABS: Urine Bacteria NONE SEEN /hpf (None Seen); Urine Blood Negative /uL (Negative); Urine Specific Gravity 1.019 (1.001-1.035); Urine WBC 1 /hpf (0 - 5)
[2018-07-15 09:51] LABS: Basophils # (auto) 0.1 uL; Eosinophils # (auto) 0.9 uL; Eosinophils % (auto) 6.7 % (0.0-7.0); Hematocrit 44.3 % (36.0-46.0); Hemoglobin 14.3 g/dL (12.2-16.2); Lymphocytes # (auto) 2.9 uL; Lymphocytes % (auto) 22.7 % (10.0-50.0); Mean Corpuscular Hemoglobin 30.1 pg (28.0-32.0); Mean Corpuscular Hgb Conc. 32.4 g/dL (32.0-36.0); Mean Corpuscular Volume 93.1 fL (80.0-100.0); Monocytes # (auto) 1.2 uL; Monocytes % (auto) 9.5 % (0.0-12.0); Neutrophils # (auto) 7.7 uL; Neutrophils % (auto) 60.1 % (37.0-80.0); Nucleated Red Blood Cells % 0.1 %; Platelet Count (auto) 258 10^3/uL (140-450); Red Blood Cells 4.76 10^6/uL (4.0-5.20); Red Cell Distribution Width 13.3 % (11.8-14.3); White Blood Cell 12.8 10^3/uL (4.4-10.8)
[2018-07-15 10:11] LABS: Albumin 3.2 g/dL (3.4-5.0); Calcium 8.3 mg/dL (8.5-10.1); Potassium 4.1 mmol/L (3.5-5.1)
[2018-07-15 10:14] LABS: BUN/Creatinine Ratio 22.7; Bilirubin, Total 0.2 mg/dL (0.2-1.0); Total Protein 6.3 g/dL (6.4-8.2)
[2018-07-15] MEDS ORDERED: SODIUM CHLORIDE 0.9% 1,000 ML IV ONE (10:20)
[2018-07-15 11:03] LABS: INR 1.03 (0.9-1.15); Partial Thromboplastin Time 29.3 sec (23.78-33.04)
[2018-07-15] MEDS ORDERED: LEVOFLOXACIN 500MG 100 ML IV ONE (13:15)
[2018-07-15] MEDS ORDERED: ACETAMINOPHEN 500 MG TAB PO PRN (16:00)
[2018-07-15] MEDS ORDERED: NITROGLYCERIN 0.4 MG SL TAB SL PRN (16:00)
[2018-07-15] MEDS ORDERED: ONDANSETRON HCL 4 MG/2 ML VIAL IV PRN (16:00)
[2018-07-15] MEDS ORDERED: DEXTROSE (50%) 50ML SYRG IV PRN (16:00)
[2018-07-15] MEDS ORDERED: MILK OF MAGNESIA 30ML SUSP PO PRN (16:00)
[2018-07-15] MEDS ORDERED: MORPHINE SULF INJ 2 MG/ML SYRINGE 1ML IV PRN (16:00)
[2018-07-15] MEDS ORDERED: MORPHINE SULFATE 4 MG/ML SYR/VIAL IV PRN (16:00)
[2018-07-15] MEDS: AZITHROMYCIN 500MG/ 250ML 250 ML IV SCH (16:48)
[2018-07-15] MEDS: ALBUTEROL SULF 2.5 MG/0.5ML(0.5%) NEB SOLN NEB SCH ×2 (16:55→21:25)
[2018-07-15] MEDS: BUDESONIDE (INHALATION) 0.5 MG/2 ML NEB NEB SCH (16:55)
[2018-07-15 17:53] VITALS: BP 124/35
[2018-07-15] MEDS: InsuLIN REG 1unit/0.01ml Soln (100units/ml) SC SCH (18:20)
[2018-07-15] MEDS: ACCU-CHEK COMFORT CURVE STRIP VI SCH (18:21)
[2018-07-15] MEDS: methylPREDNISolone SOD SUCC 125 MG/2 ML VL IV SCH (18:26)
[2018-07-15] MEDS: ALPRAZolam 0.25 MG TAB PO PRN (18:28)
[2018-07-15 20:15] VITALS: BP 115/53
[2018-07-15 22:03] VITALS: BP 115/53
[2018-07-15] MEDS: DONEPEZIL HYDROCHLORIDE 5 MG TAB PO SCH (22:24)
[2018-07-15] MEDS: ATORVASTATIN 20 MG TAB PO SCH (22:24)
[2018-07-15] MEDS: PRIMIDONE 50 MG TAB PO SCH (22:24)
[2018-07-15] MEDS: MONTELUKAST SODIUM 10 MG TAB PO SCH (22:25)
[2018-07-16] MEDS: InsuLIN REG 1unit/0.01ml Soln (100units/ml) SC SCH ×4 (05:30→17:39)
[2018-07-16] MEDS: ACCU-CHEK COMFORT CURVE STRIP VI SCH ×4 (05:30→17:39)
[2018-07-16] MEDS: methylPREDNISolone SOD SUCC 125 MG/2 ML VL IV SCH ×4 (05:30→17:39)
[2018-07-16 05:49] VITALS: BP 96/58
[2018-07-16] MEDS: BUDESONIDE (INHALATION) 0.5 MG/2 ML NEB NEB SCH ×2 (07:05→22:28)
[2018-07-16] MEDS: ALBUTEROL SULF 2.5 MG/0.5ML(0.5%) NEB SOLN NEB SCH ×5 (07:05→22:27)
[2018-07-16 09:00] VITALS: BP 119/71
[2018-07-16] MEDS: FUROSEMIDE 20 MG TAB PO SCH (09:18)
[2018-07-16] MEDS: MEMANTINE HCL 5 MG TAB PO SCH (09:18)
[2018-07-16] MEDS: POTASSIUM CHL 10 Meq TABLET PO SCH ×2 (09:19→10:00)
[2018-07-16] MEDS: RIVAROXABAN 10 MG TAB PO SCH (09:19)
[2018-07-16] MEDS: FAMOTIDINE 20 MG TAB PO SCH (09:19)
[2018-07-16] MEDS: MULTIPLE VITAMIN TAB PO SCH (09:19)
[2018-07-16] MEDS: LOSARTAN POTASSIUM 50 MG TAB PO SCH (09:20)
[2018-07-16] MEDS ORDERED: SODIUM CHLORIDE 0.9 % NEB SOLN 3ML NEB ONE ×2 (10:11→14:33)
[2018-07-16 13:00] VITALS: BP 129/59
[2018-07-16] MEDS ORDERED: PRI50T PO (14:22)
[2018-07-16] MEDS ORDERED: GLIP-115 PO (14:22)
[2018-07-16] MEDS: AZITHROMYCIN 500MG/ 250ML 250 ML IV SCH (15:37)
[2018-07-16 16:30] VITALS: BP 102/51
[2018-07-16] MEDS: ALPRAZolam 0.25 MG TAB PO PRN (17:39)
[2018-07-16] MEDS: DONEPEZIL HYDROCHLORIDE 5 MG TAB PO SCH (22:26)
[2018-07-16] MEDS: PRIMIDONE 50 MG TAB PO SCH (22:26)
[2018-07-16] MEDS: ATORVASTATIN 20 MG TAB PO SCH (22:26)
[2018-07-16] MEDS: MONTELUKAST SODIUM 10 MG TAB PO SCH (22:27)
[2018-07-16 23:58] VITALS: BP 90/44
[2018-07-17] MEDS: InsuLIN REG 1unit/0.01ml Soln (100units/ml) SC SCH ×4 (00:12→18:44)
[2018-07-17] MEDS: ACCU-CHEK COMFORT CURVE STRIP VI SCH ×4 (00:12→18:44)
[2018-07-17] MEDS: methylPREDNISolone SOD SUCC 125 MG/2 ML VL IV SCH ×4 (00:14→22:42)
[2018-07-17 05:15] VITALS: BP 97/55
[2018-07-17] MEDS: ALBUTEROL SULF 2.5 MG/0.5ML(0.5%) NEB SOLN NEB SCH ×5 (06:56→22:18)
[2018-07-17 09:22] VITALS: BP 94/49
[2018-07-17] MEDS: MEMANTINE HCL 5 MG TAB PO SCH (09:43)
[2018-07-17] MEDS: MULTIPLE VITAMIN TAB PO SCH (09:43)
[2018-07-17] MEDS: FAMOTIDINE 20 MG TAB PO SCH (09:43)
[2018-07-17] MEDS: RIVAROXABAN 10 MG TAB PO SCH (09:43)
[2018-07-17] MEDS: LOSARTAN POTASSIUM 50 MG TAB PO SCH (09:44)
[2018-07-17] MEDS: FUROSEMIDE 20 MG TAB PO SCH (09:44)
[2018-07-17] MEDS: POTASSIUM CHL 10% (20 MEQ/15ML) 15ml ORAL SOLN PO SCH (09:44)
[2018-07-17] MEDS: BUDESONIDE (INHALATION) 0.5 MG/2 ML NEB NEB SCH ×2 (09:58→18:34)
[2018-07-17] MEDS: ALPRAZolam 0.25 MG TAB PO PRN (12:29)
[2018-07-17] MEDS: IPRATROPIUM BROM 0.5 MG/2.5ML INH SOL NEB SCH ×3 (14:00→22:18)
[2018-07-17] MEDS: AZITHROMYCIN 500MG/ 250ML 250 ML IV SCH (15:47)
[2018-07-17 17:13] VITALS: BP 101/52
[2018-07-17 21:38] VITALS: BP 103/53
[2018-07-17] MEDS: PRIMIDONE 50 MG TAB PO SCH (22:41)
[2018-07-17] MEDS: MONTELUKAST SODIUM 10 MG TAB PO SCH (22:41)
[2018-07-17] MEDS: DONEPEZIL HYDROCHLORIDE 5 MG TAB PO SCH (22:42)
[2018-07-17] MEDS: ATORVASTATIN 20 MG TAB PO SCH (22:42)
[2018-07-18] MEDS: ACCU-CHEK COMFORT CURVE STRIP VI SCH ×4 (00:09→17:40)
[2018-07-18] MEDS: ALPRAZolam 0.25 MG TAB PO PRN (00:32)
[2018-07-18] MEDS: IPRATROPIUM BROM 0.5 MG/2.5ML INH SOL NEB SCH ×6 (02:00→21:57)
[2018-07-18 05:16] VITALS: BP 110/58
[2018-07-18] MEDS: ALBUTEROL SULF 2.5 MG/0.5ML(0.5%) NEB SOLN NEB SCH ×5 (05:53→21:57)
[2018-07-18] MEDS: InsuLIN REG 1unit/0.01ml Soln (100units/ml) SC SCH ×4 (06:05→17:39)
[2018-07-18] MEDS: BUDESONIDE (INHALATION) 0.5 MG/2 ML NEB NEB SCH ×2 (07:20→19:31)
[2018-07-18 08:48] VITALS: BP 134/61
[2018-07-18] MEDS: POTASSIUM CHL 10% (20 MEQ/15ML) 15ml ORAL SOLN PO SCH (09:35)
[2018-07-18] MEDS: methylPREDNISolone SOD SUCC 125 MG/2 ML VL IV SCH ×2 (09:35→21:41)
[2018-07-18] MEDS: MULTIPLE VITAMIN TAB PO SCH (09:37)
[2018-07-18] MEDS: RIVAROXABAN 10 MG TAB PO SCH (09:39)
[2018-07-18] MEDS: MEMANTINE HCL 5 MG TAB PO SCH ×2 (09:39→21:41)
[2018-07-18] MEDS: FAMOTIDINE 20 MG TAB PO SCH (09:39)
[2018-07-18] MEDS: LOSARTAN POTASSIUM 50 MG TAB PO SCH (09:49)
[2018-07-18] MEDS: FUROSEMIDE 20 MG TAB PO SCH (09:49)
[2018-07-18 13:00] VITALS: BP 100/44
[2018-07-18] MEDS ORDERED: HALOPERIDOL LACTATE 5 MG/ML INJ VIAL IM PRN (14:00)
[2018-07-18 16:48] VITALS: BP 112/55
[2018-07-18] MEDS: AZITHROMYCIN 500MG/ 250ML 250 ML IV SCH (17:39)
[2018-07-18 20:29] VITALS: BP 112/55
[2018-07-18] MEDS: PRIMIDONE 50 MG TAB PO SCH (21:40)
[2018-07-18] MEDS: DONEPEZIL HYDROCHLORIDE 5 MG TAB PO SCH (21:40)
[2018-07-18] MEDS: MONTELUKAST SODIUM 10 MG TAB PO SCH (21:40)
[2018-07-18] MEDS: ATORVASTATIN 20 MG TAB PO SCH (21:41)
[2018-07-18 22:00] VITALS: BP 105/54
[2018-07-19] MEDS: ACCU-CHEK COMFORT CURVE STRIP VI SCH ×4 (00:15→17:03)
[2018-07-19] MEDS: InsuLIN REG 1unit/0.01ml Soln (100units/ml) SC SCH ×4 (00:15→17:03)
[2018-07-19] MEDS: IPRATROPIUM BROM 0.5 MG/2.5ML INH SOL NEB SCH ×6 (02:39→22:07)
[2018-07-19] MEDS: ALBUTEROL SULF 2.5 MG/0.5ML(0.5%) NEB SOLN NEB SCH ×6 (02:39→22:07)
[2018-07-19 04:29] VITALS: BP 110/56
[2018-07-19 09:00] VITALS: BP 120/74
[2018-07-19] MEDS: BUDESONIDE (INHALATION) 0.5 MG/2 ML NEB NEB SCH ×2 (09:55→18:19)
[2018-07-19] MEDS: RIVAROXABAN 10 MG TAB PO SCH (11:05)
[2018-07-19] MEDS: FUROSEMIDE 20 MG TAB PO SCH (11:05)
[2018-07-19] MEDS: methylPREDNISolone SOD SUCC 125 MG/2 ML VL IV SCH ×2 (11:05→22:16)
[2018-07-19] MEDS: MULTIPLE VITAMIN TAB PO SCH (11:05)
[2018-07-19] MEDS: POTASSIUM CHL 10% (20 MEQ/15ML) 15ml ORAL SOLN PO SCH (11:06)
[2018-07-19] MEDS: MEMANTINE HCL 5 MG TAB PO SCH ×2 (11:06→22:15)
[2018-07-19] MEDS: LOSARTAN POTASSIUM 50 MG TAB PO SCH (11:06)
[2018-07-19] MEDS: FAMOTIDINE 20 MG TAB PO SCH (11:07)
[2018-07-19 13:00] VITALS: BP 115/51
[2018-07-19] MEDS: AZITHROMYCIN 500MG/ 250ML 250 ML IV SCH (16:16)
[2018-07-19 17:44] VITALS: BP 124/69
[2018-07-19 22:00] VITALS: BP 117/63
[2018-07-19] MEDS: PRIMIDONE 50 MG TAB PO SCH (22:15)
[2018-07-19] MEDS: ATORVASTATIN 20 MG TAB PO SCH (22:15)
[2018-07-19] MEDS: DONEPEZIL HYDROCHLORIDE 5 MG TAB PO SCH (22:15)
[2018-07-19] MEDS: MONTELUKAST SODIUM 10 MG TAB PO SCH (22:15)
[2018-07-20] MEDS: ACCU-CHEK COMFORT CURVE STRIP VI SCH ×4 (00:17→17:16)
[2018-07-20] MEDS: IPRATROPIUM BROM 0.5 MG/2.5ML INH SOL NEB SCH ×6 (02:42→22:38)
[2018-07-20 05:00] VITALS: BP 123/71
[2018-07-20] MEDS: ALBUTEROL SULF 2.5 MG/0.5ML(0.5%) NEB SOLN NEB SCH ×5 (05:26→22:38)
[2018-07-20] MEDS: BUDESONIDE (INHALATION) 0.5 MG/2 ML NEB NEB SCH ×2 (05:27→18:41)
[2018-07-20] MEDS: InsuLIN REG 1unit/0.01ml Soln (100units/ml) SC SCH ×4 (06:03→17:16)
[2018-07-20 08:00] VITALS: BP 116/79
[2018-07-20] MEDS: methylPREDNISolone SOD SUCC 125 MG/2 ML VL IV SCH ×2 (10:49→22:25)
[2018-07-20] MEDS: POTASSIUM CHL 10% (20 MEQ/15ML) 15ml ORAL SOLN PO SCH (10:49)
[2018-07-20] MEDS: FAMOTIDINE 20 MG TAB PO SCH (10:50)
[2018-07-20] MEDS: MULTIPLE VITAMIN TAB PO SCH (10:50)
[2018-07-20] MEDS: LOSARTAN POTASSIUM 50 MG TAB PO SCH (10:50)
[2018-07-20] MEDS: FUROSEMIDE 20 MG TAB PO SCH (10:50)
[2018-07-20] MEDS: RIVAROXABAN 10 MG TAB PO SCH (10:50)
[2018-07-20] MEDS: MEMANTINE HCL 5 MG TAB PO SCH ×2 (10:50→22:25)
[2018-07-20 12:00] VITALS: BP 128/57
[2018-07-20] MEDS: AZITHROMYCIN 500MG/ 250ML 250 ML IV SCH (16:51)
[2018-07-20 17:00] VITALS: BP 113/66
[2018-07-20 22:00] VITALS: BP 93/62
[2018-07-20] MEDS: DONEPEZIL HYDROCHLORIDE 5 MG TAB PO SCH (22:25)
[2018-07-20] MEDS: PRIMIDONE 50 MG TAB PO SCH (22:26)
[2018-07-20] MEDS: MONTELUKAST SODIUM 10 MG TAB PO SCH (22:26)
[2018-07-20] MEDS: ATORVASTATIN 20 MG TAB PO SCH (22:26)
[2018-07-21] MEDS: IPRATROPIUM BROM 0.5 MG/2.5ML INH SOL NEB SCH ×6 (02:24→22:25)
[2018-07-21 05:00] VITALS: BP 128/65
[2018-07-21] MEDS: BUDESONIDE (INHALATION) 0.5 MG/2 ML NEB NEB SCH ×2 (05:28→19:04)
[2018-07-21] MEDS: ALBUTEROL SULF 2.5 MG/0.5ML(0.5%) NEB SOLN NEB SCH ×5 (05:29→22:25)
[2018-07-21] MEDS: ACCU-CHEK COMFORT CURVE STRIP VI SCH ×5 (06:10→23:23)
[2018-07-21] MEDS: InsuLIN REG 1unit/0.01ml Soln (100units/ml) SC SCH ×4 (06:10→17:17)
[2018-07-21 09:00] VITALS: BP 92/50
[2018-07-21] MEDS: FUROSEMIDE 20 MG TAB PO SCH (10:00)
[2018-07-21] MEDS: LOSARTAN POTASSIUM 50 MG TAB PO SCH (10:00)
[2018-07-21] MEDS: methylPREDNISolone SOD SUCC 125 MG/2 ML VL IV SCH ×2 (11:01→23:22)
[2018-07-21] MEDS: POTASSIUM CHL 10% (20 MEQ/15ML) 15ml ORAL SOLN PO SCH (11:02)
[2018-07-21] MEDS: RIVAROXABAN 10 MG TAB PO SCH (11:02)
[2018-07-21] MEDS: MEMANTINE HCL 5 MG TAB PO SCH ×2 (11:02→23:23)
[2018-07-21] MEDS: MULTIPLE VITAMIN TAB PO SCH (11:02)
[2018-07-21] MEDS: FAMOTIDINE 20 MG TAB PO SCH (11:03)
[2018-07-21 12:53] VITALS: BP 101/61
[2018-07-21] MEDS: ALPRAZolam 0.25 MG TAB PO PRN (14:55)
[2018-07-21] MEDS: AZITHROMYCIN 500MG/ 250ML 250 ML IV SCH (14:55)
[2018-07-21 17:28] VITALS: BP 117/63
[2018-07-21 22:12] VITALS: BP 111/60
[2018-07-21] MEDS: MONTELUKAST SODIUM 10 MG TAB PO SCH (23:22)
[2018-07-21] MEDS: DONEPEZIL HYDROCHLORIDE 5 MG TAB PO SCH (23:22)
[2018-07-21] MEDS: ATORVASTATIN 20 MG TAB PO SCH (23:22)
[2018-07-21] MEDS: PRIMIDONE 50 MG TAB PO SCH (23:23)
[2018-07-22] MEDS: InsuLIN REG 1unit/0.01ml Soln (100units/ml) SC SCH ×5 (00:14→23:45)
[2018-07-22 01:18] VITALS: BP 111/60
[2018-07-22] MEDS: IPRATROPIUM BROM 0.5 MG/2.5ML INH SOL NEB SCH ×6 (02:16→22:09)
[2018-07-22] MEDS: ALBUTEROL SULF 2.5 MG/0.5ML(0.5%) NEB SOLN NEB SCH ×6 (02:17→22:09)
[2018-07-22 04:53] VITALS: BP 110/60
[2018-07-22] MEDS: ACCU-CHEK COMFORT CURVE STRIP VI SCH ×4 (06:19→23:45)
[2018-07-22 09:00] VITALS: BP 100/49
[2018-07-22] MEDS: BUDESONIDE (INHALATION) 0.5 MG/2 ML NEB NEB SCH ×2 (10:19→18:19)
[2018-07-22] MEDS: methylPREDNISolone SOD SUCC 125 MG/2 ML VL IV SCH ×2 (10:28→22:05)
[2018-07-22] MEDS: FAMOTIDINE 20 MG TAB PO SCH (10:28)
[2018-07-22] MEDS: RIVAROXABAN 10 MG TAB PO SCH (10:29)
[2018-07-22] MEDS: FUROSEMIDE 20 MG TAB PO SCH (10:29)
[2018-07-22] MEDS: MEMANTINE HCL 5 MG TAB PO SCH ×2 (10:29→22:05)
[2018-07-22] MEDS: MULTIPLE VITAMIN TAB PO SCH (10:29)
[2018-07-22] MEDS: LOSARTAN POTASSIUM 50 MG TAB PO SCH (10:30)
[2018-07-22] MEDS: POTASSIUM CHL 10% (20 MEQ/15ML) 15ml ORAL SOLN PO SCH (10:31)
[2018-07-22] MEDS ORDERED: ALPRAZolam 0.5 MG TAB PO PRN (11:30)
[2018-07-22 11:44] LABS: Albumin 2.8 g/dL (3.4-5.0); Calcium 8.4 mg/dL (8.5-10.1); Potassium 4.4 mmol/L (3.5-5.1)
[2018-07-22 11:47] LABS: Bilirubin, Total 0.2 mg/dL (0.2-1.0); Total Protein 6.1 g/dL (6.4-8.2)
[2018-07-22 12:05] VITALS: BP 104/52
[2018-07-22 17:01] VITALS: BP 116/58
[2018-07-22] MEDS: AZITHROMYCIN 500MG/ 250ML 250 ML IV SCH (17:18)
[2018-07-22] MEDS: Glucerna Carbsteady SHAKE Vanilla 8oz PO SCH (18:00)
[2018-07-22 22:00] VITALS: BP 109/60
[2018-07-22] MEDS ORDERED: PRIMIDONE 50 MG TAB PO SCH (22:00)
[2018-07-22] MEDS: ALPRAZolam 0.5 MG TAB PO SCH (22:03)
[2018-07-22] MEDS: MONTELUKAST SODIUM 10 MG TAB PO SCH (22:05)
[2018-07-22] MEDS: ATORVASTATIN 20 MG TAB PO SCH (22:05)
[2018-07-22] MEDS: DONEPEZIL HYDROCHLORIDE 5 MG TAB PO SCH (22:05)
[2018-07-23] MEDS: IPRATROPIUM BROM 0.5 MG/2.5ML INH SOL NEB SCH ×4 (02:26→13:47)
[2018-07-23 05:45] VITALS: BP 107/75
[2018-07-23] MEDS: ACCU-CHEK COMFORT CURVE STRIP VI SCH ×2 (06:00→13:07)
[2018-07-23] MEDS: InsuLIN REG 1unit/0.01ml Soln (100units/ml) SC SCH ×2 (06:00→13:07)
[2018-07-23] MEDS: BUDESONIDE (INHALATION) 0.5 MG/2 ML NEB NEB SCH (06:26)
[2018-07-23] MEDS: ALBUTEROL SULF 2.5 MG/0.5ML(0.5%) NEB SOLN NEB SCH ×3 (06:26→13:47)
[2018-07-23] MEDS: Glucerna Carbsteady SHAKE Vanilla 8oz PO SCH ×2 (08:00→18:00)
[2018-07-23 09:28] VITALS: BP 100/43
[2018-07-23] MEDS: LOSARTAN POTASSIUM 50 MG TAB PO SCH (10:00)
[2018-07-23] MEDS: POTASSIUM CHL 10% (20 MEQ/15ML) 15ml ORAL SOLN PO SCH (10:00)
[2018-07-23] MEDS: methylPREDNISolone SOD SUCC 125 MG/2 ML VL IV SCH (11:02)
[2018-07-23] MEDS: FAMOTIDINE 20 MG TAB PO SCH (11:02)
[2018-07-23] MEDS: RIVAROXABAN 10 MG TAB PO SCH (11:03)
[2018-07-23] MEDS: ALPRAZolam 0.5 MG TAB PO SCH (11:03)
[2018-07-23] MEDS: MULTIPLE VITAMIN TAB PO SCH (11:03)
[2018-07-23] MEDS: FUROSEMIDE 20 MG TAB PO SCH (11:05)
[2018-07-23 12:56] VITALS: BP 104/51
[2018-07-23 15:56] VITALS: BP 102/53
[2018-07-23] MEDS: AZITHROMYCIN 500MG/ 250ML 250 ML IV SCH (16:00)
[2018-07-23 16:31] VITALS: BP 107/64
[2018-07-23] MEDS ORDERED: MEMANTINE HCL 5 MG TAB PO SCH (22:00)
[2018-07-24] MEDS ORDERED: MEMANTINE HCL 5 MG TAB PO SCH (07:00)
== END 2018-07-23 19:20 | disposition home or self-care (01) | DRG 871 ==
LOC: EDBD 08:26 → ER 08:31 → TELE 13:27 → TELE-CENTR 20:17
PROVIDERS: ADMIT Internal Medicine; ATTEND Internal Medicine
DX: A41.9 Sepsis, unspecified organism (principal); G93.41 Metabolic encephalopathy; J44.1 Chronic obstructive pulmonary disease with (acute) exacerbation; E11.649 Type 2 diabetes mellitus with hypoglycemia without coma; I11.0 Hypertensive heart disease with heart failure; G20 Parkinson's disease; I50.9 Heart failure, unspecified; E11.40 Type 2 diabetes mellitus with diabetic neuropathy, unspecified; F41.9 Anxiety disorder, unspecified; E78.5 Hyperlipidemia, unspecified; F02.80 Dementia in other diseases classified elsewhere, unspecified severity, without behavioral disturbance, psychotic disturbance, mood disturbance, and anxiety; F17.210 Nicotine dependence, cigarettes, uncomplicated; G25.0 Essential tremor; Z79.899 Other long term (current) drug therapy; Z79.82 Long term (current) use of aspirin; Z80.3 Family history of malignant neoplasm of breast; Z82.0 Family history of epilepsy and other diseases of the nervous system; Z82.49 Family history of ischemic heart disease and other diseases of the circulatory system; Z82.62 Family history of osteoporosis; Z83.3 Family history of diabetes mellitus; Z90.710 Acquired absence of both cervix and uterus; Z82.5 Family history of asthma and other chronic lower respiratory diseases; Z79.84 Long term (current) use of oral hypoglycemic drugs; Z88.0 Allergy status to penicillin; Z88.8 Allergy status to other drugs, medicaments and biological substances
CPT/HCPCS: 36415; 71045; 80053; 81001; 82962; 83036; 84484; 85025; 85610; 85730; 87040; 87081; 87086; 93005; 93306; 94640; 95819; G0378; J1815; J1956; J7042

== ENCOUNTER 2019-03-10 08:19 | Emergency (ER) | payer MEDICARE, MEDICAID ==
[~2019-03-10 08:19] MED LIST changes: -ASPI-231 PO; -Acetaminophen PO; +GLIP5TAB12 PO; -LACTCAP35 PO; +LOSA-39 PO; -LOSA-49 PO; +PRIM50TA5 PO
[2019-03-10] MEDS ORDERED: SODIUM CHLORIDE 0.9% 1,000 ML IV ONE (08:47)
[2019-03-10 09:36] LABS: Basophils # (auto) 0.1 uL; Eosinophils # (auto) 0.6 uL; Eosinophils % (auto) 5.1 % (0.0-7.0); Hematocrit 47.7 % (36.0-46.0); Hemoglobin 15.9 g/dL (12.2-16.2); Lymphocytes # (auto) 2.3 uL; Lymphocytes % (auto) 17.9 % (10.0-50.0); Mean Corpuscular Hgb Conc. 33.3 g/dL (32.0-36.0); Mean Corpuscular Volume 93.2 fL (80.0-100.0); Monocytes # (auto) 0.9 uL; Monocytes % (auto) 7.3 % (0.0-12.0); Neutrophils # (auto) 8.7 uL; Neutrophils % (auto) 68.7 % (37.0-80.0); Nucleated Red Blood Cells % 0.1 %; Platelet Count (auto) 293 10^3/uL (140-450); Red Blood Cells 5.12 10^6/uL (4.0-5.20); White Blood Cell 12.7 10^3/uL (4.4-10.8)
[2019-03-10] MEDS ORDERED: ONDANSETRON HCL 4 MG/2 ML VIAL IV ONE (09:45)
[2019-03-10 10:02] LABS: Alanine Aminotransferase 67 U/L (13-56); Albumin 3.1 g/dL (3.4-5.0); Anion Gap 7 (5-15); Aspartate Aminotransferase 58 U/L (15-37); BUN/Creatinine Ratio 25.8; Bilirubin, Total 0.5 mg/dL (0.2-1.0); Blood Urea Nitrogen 17 mg/dL (7-18); Calcium 8.5 mg/dL (8.5-10.1); Carbon Dioxide 26 mmol/L (21-32); Chloride 106 mmol/L (98-107); GFR African American 111 mL/min; GFR Non-African American 92 mL/min; Glucose 156 mg/dL (74-106); Potassium 3.7 mmol/L (3.5-5.1); Sodium 139 mmol/L (136-145)
[2019-03-10 10:11] LABS: Alkaline Phosphatase 67 U/L (45-117); Total Protein 6.8 g/dL (6.4-8.2)
[2019-03-10 10:24] LABS: Partial Thromboplastin Time 25.9 sec (23.64-32.05)
[2019-03-10 11:24] LABS: Urine Bacteria NONE SEEN /hpf (None Seen); Urine Blood Negative /uL (Negative); Urine Specific Gravity 1.011 (1.001-1.035); Urine WBC 1 /hpf (0 - 5)
[2019-03-10 11:38] LABS: Alcohol, Urine < 3.0 mg/dL (0-5); Amphetamine Screen, Urine NEGATIVE (NEGATIVE); Barbiturate Scree,Urine POSITIVE (NEGATIVE); Benzodiazephine Screen, Urine POSITIVE (NEGATIVE); Cannabinoid Screen, Urine NEGATIVE (NEGATIVE); Cocaine Screen, Urine NEGATIVE (NEGATIVE); Phencyclidine Screen, Urine NEGATIVE (NEGATIVE)
[2019-03-10 11:45] LABS: Opiate Scree,Urine NEGATIVE (NEGATIVE)
[2019-03-10 17:00] VITALS: BP 105/58
[2019-03-10] MEDS ORDERED: IPRATROPIUM BROM 0.5 MG/2.5ML INH SOL NEB ONE (18:30)
[2019-03-10] MEDS ORDERED: ALBUTEROL SULF 2.5 MG/0.5ML(0.5%) NEB SOLN NEB ONE (18:30)
== END 2019-03-10 15:12 | disposition home or self-care (01) ==
LOC: EDBD 08:19 → ER 08:22
DX: I46.9 Cardiac arrest, cause unspecified (principal); E11.9 Type 2 diabetes mellitus without complications; F03.90 Unspecified dementia, unspecified severity, without behavioral disturbance, psychotic disturbance, mood disturbance, and anxiety; E44.1 Mild protein-calorie malnutrition; R74.8 Abnormal levels of other serum enzymes; I11.0 Hypertensive heart disease with heart failure; I50.9 Heart failure, unspecified; K59.00 Constipation, unspecified; J44.9 Chronic obstructive pulmonary disease, unspecified; Z87.891 Personal history of nicotine dependence; Z90.710 Acquired absence of both cervix and uterus
CPT/HCPCS: 36415; 51701; 70450; 71046; 80053; 80307; 81001; 82962; 83735; 84443; 84484; 85025; 85610; 85730; 93005; 94640; 96361; 96374; 99285; J2405; J7030; J7611; J7644; 92950